=== PATIENT | male | born 1985 | race Caucasian/White ===

== ENCOUNTER 2016-03-15 22:36 | Emergency (ER) | payer OTHER ==
[~2016-03-15] VITALS: Ht 177.8 cm; Wt 78.2 kg
[~2016-03-15 22:36] MED LIST: DUEXIS 800-26.1 EACH PO; FLEXERIL5 MG PO; NAPROSYN500 MG PO; NAPROXEN500 MG PO; NOHOMEMEDS; NORCO 5/3251 TABLET PO; ROBAXIN750 MG PO; ULTRAM50 MG PO
[2016-03-15 22:39] VITALS: BP 143/97
[2016-03-15 22:56] LABS: POINT-OF-CARE METER ID UU13113778
== END 2016-03-15 23:50 | disposition home or self-care (01) ==
LOC: EME 22:36
DX: R55 Syncope and collapse (principal); R42 Dizziness and giddiness
CPT/HCPCS: 82948; 93005; 99281; 99284; G0480

== ENCOUNTER 2016-06-06 17:08 | Emergency (ER) | payer OTHER ==
[~2016-06-06] VITALS: Ht 177.8 cm; Wt 78.8 kg
[2016-06-06] MEDS ORDERED: ZANTAC150 MG PO (17:52)
[2016-06-06 17:59] LABS: ADD MIUA? YES; BILIRUBIN NEGATIVE; BLOOD MODERATE; COLOR YELLOW ((YELLOW)); GLUCOSE (STRIP) NEGATIVE; KETONES NEGATIVE; LEUKOCYTES NEGATIVE; NITRITE NEGATIVE; PROTEIN (STRIP) NEGATIVE; UROBILINOGEN 0.2 MG/DL (0.2-1.0)
[2016-06-06 18:01] LABS: BACTERIA NONE SEEN /HPF; EPITHELIAL CELLS RARE /HPF; MUCUS TRACE /LPF; RED BLOOD CELLS 30-40 /HPF (0-5); UCUL ADDED? NO; WHITE BLOOD CELLS 0-5 /HPF (0-5)
[2016-06-06 18:05] LABS: HEMATOCRIT 42.7 % (38.0-50.0); MCH 29.2 PG (29.0-34.0); MCV 88.4 FL (86-99); MEAN PLAT.VOLUME 8.9 uM^3 (9.0-12.4); PLATELET COUNT 250 K/uL (156-360); RBC DIS.WIDTH-SD 42.5 % (39-53); RED BLOOD COUNT 4.83 M/uL (4.00-5.50); WHITE BLOOD COUNT 6.8 K/uL (4.1-10.2)
[2016-06-06 18:14] LABS: CHLORIDE 106 mEq/L (99-109); POTASSIUM 3.6 mEq/L (3.7-5.4); SODIUM 138 mEq/L (136-147)
[2016-06-06 18:15] LABS: GLUCOSE 110 mg/dL (70-99)
[2016-06-06 18:17] LABS: ANION GAP 10 MEQ/L (2-14)
[2016-06-06 18:19] LABS: GFR ESTIMATE (CALCULATED) > 59 mL/min/
[2016-06-06 18:20] LABS: UREA NITROGEN (BUN) 7 mg/dL (9-23)
[2016-06-06 18:51] LABS: LIPASE 23 U/L (1.0-51.0)
[2016-06-06] MEDS ORDERED: INDOCIN50 MG PO (19:36)
[2016-06-06] MEDS ORDERED: VALIUM5 MG PO (19:36)
[2016-06-06 21:08] VITALS: BP 112/76
== END 2016-06-06 21:09 | disposition home or self-care (01) ==
LOC: EME 17:08
DX: R10.9 Unspecified abdominal pain (principal); R31.9 Hematuria, unspecified; Z87.442 Personal history of urinary calculi; F95.2 Tourette's disorder
CPT/HCPCS: 74176; 80048; 81003; 83690; 85027; 87086; 99281; 99284; J1885; J3010

== ENCOUNTER 2016-06-10 14:52 | Emergency (ER) | payer OTHER ==
[~2016-06-10] VITALS: Ht 177.8 cm; Wt 78.2 kg
[~2016-06-10 14:52] MED LIST changes: +INDOCIN50 MG PO; +VALIUM5 MG PO; +ZANTAC150 MG PO
[2016-06-10 16:38] LABS: ADD MIUA? NO; BILIRUBIN NEGATIVE; BLOOD NEGATIVE; COLOR YELLOW ((YELLOW)); GLUCOSE (STRIP) NEGATIVE; KETONES NEGATIVE; LEUKOCYTES NEGATIVE; NITRITE NEGATIVE; PROTEIN (STRIP) NEGATIVE; SPECIFIC GRAVITY 1.012 (1.000-1.030); UROBILINOGEN 0.2 MG/DL (0.2-1.0)
[2016-06-10] MEDS ORDERED: ZOVIRAX800 M1 PO (16:52)
[2016-06-10 16:58] VITALS: BP 120/80
[2016-06-13 11:37] LABS: CHLAMYDIA TRACHOMATIS NEGATIVE; NEISSERIA GONORRHOEAE NEGATIVE
== END 2016-06-10 17:00 | disposition home or self-care (01) ==
LOC: EME 14:52
PROVIDERS: Nurse Practitioner Family
DX: B00.9 Herpesviral infection, unspecified (principal); Z86.19 Personal history of other infectious and parasitic diseases; Z87.442 Personal history of urinary calculi
CPT/HCPCS: 81003; 87491; 87591; 99281; 99284

== ENCOUNTER 2016-08-02 15:04 | Emergency (ER) | payer OTHER ==
[~2016-08-02] VITALS: Ht 177.8 cm; Wt 76.7 kg
[~2016-08-02 15:04] MED LIST changes: +ZOVIRAX800 M1 PO
[2016-08-02 15:15] VITALS: BP 114/81
[2016-08-02] MEDS ORDERED: INDOCIN50 MG PO (16:31)
== END 2016-08-02 16:47 | disposition home or self-care (01) ==
LOC: RME 15:04 → EME 15:04 → EXP 15:04 → RME 16:47
DX: S50.01XA Contusion of right elbow, initial encounter (principal); S54.01XA Injury of ulnar nerve at forearm level, right arm, initial encounter; W18.30XA Fall on same level, unspecified, initial encounter; Y92.008 Other place in unspecified non-institutional (private) residence as the place of occurrence of the external cause
CPT/HCPCS: 73080; 99281; 99283

== ENCOUNTER 2016-08-15 13:12 | Emergency (ER) | payer OTHER ==
[~2016-08-15] VITALS: Ht 177.8 cm; Wt 76.3 kg
[2016-08-15] MEDS ORDERED: NAPROXEN500 MG PO (13:40)
[2016-08-15] MEDS ORDERED: PEN-VEE K,VEET500 MG PO (13:40)
[2016-08-15 13:50] VITALS: BP 120/83
== END 2016-08-15 13:51 | disposition home or self-care (01) ==
LOC: EME 13:12
DX: K02.9 Dental caries, unspecified (principal)
CPT/HCPCS: 99281; 99283

== ENCOUNTER 2016-09-19 03:19 | Emergency (ER) | payer OTHER ==
[~2016-09-19] VITALS: Ht 177.8 cm; Wt 76.8 kg
[~2016-09-19 03:19] MED LIST changes: +PEN-VEE K,VEET500 MG PO
[2016-09-19] MEDS ORDERED: PEN-VEE K,VEET500 MG PO (04:41)
[2016-09-19] MEDS ORDERED: PERCOCET 5/31 TABLET PO (04:41)
[2016-09-19 04:49] VITALS: BP 138/81
== END 2016-09-19 04:50 | disposition home or self-care (01) ==
LOC: EME 03:19
DX: K08.89 Other specified disorders of teeth and supporting structures (principal)
CPT/HCPCS: 99281; 99283

== ENCOUNTER 2016-10-31 13:13 | Emergency (ER) | payer OTHER ==
[~2016-10-31] VITALS: Ht 177.8 cm; Wt 77.6 kg
[~2016-10-31 13:13] MED LIST changes: +PERCOCET 5/31 TABLET PO
[2016-10-31] MEDS ORDERED: MOTRIN800 MG PO (15:24)
[2016-10-31] MEDS ORDERED: LIDODERM 5% P1 PATCH TD (15:24)
[2016-10-31] MEDS ORDERED: FLEXERIL10 MG PO (15:24)
[2016-10-31 15:33] VITALS: BP 118/80
== END 2016-10-31 15:33 | disposition home or self-care (01) ==
LOC: EME 13:13
DX: M62.838 Other muscle spasm (principal); M25.511 Pain in right shoulder; W17.89XA Other fall from one level to another, initial encounter; F95.2 Tourette's disorder; Z87.442 Personal history of urinary calculi; Z87.891 Personal history of nicotine dependence
CPT/HCPCS: 72040; 73030; 99281; 99282; J1885